=== PATIENT | female | born 1960 | race Caucasian/White ===

== ENCOUNTER → 2017-09-10 | Outpatient (CLI) | payer OTHER ==
[2017-09-10 09:24] LABS: Urine RBC None Seen /hpf (0 - 4)
[2017-09-10 09:43] LABS: Basophils # (auto) 0 uL; Basophils % (auto) 0.5 % (0.0-2.0); Eosinophils # (auto) 0.2 uL; Eosinophils % (auto) 2.7 % (0.0-7.0); Hemoglobin 14.5 g/dL (12.2-16.2); Lymphocytes # (auto) 1.7 uL; Lymphocytes % (auto) 27.6 % (10.0-50.0); Mean Corpuscular Hemoglobin 30.1 pg (28.0-32.0); Mean Corpuscular Hgb Conc. 33.7 g/dL (32.0-36.0); Mean Corpuscular Volume 89.4 fL (80.0-100.0); Mean Platelet Volume 8.6 fL (6.9-10.8); Monocytes # (auto) 0.6 uL; Monocytes % (auto) 10.2 % (0.0-12.0); Neutrophils # (auto) 3.7 uL; Nucleated Red Blood Cells % 0.1 %; Platelet Count (auto) 257 10^3/uL (140-450); Red Cell Distribution Width 13.4 % (11.8-14.3); White Blood Cell 6.3 10^3/uL (4.4-10.8)
[2017-09-10 09:47] LABS: Urine Bilirubin Negative (Negative); Urine Blood 1+ /uL (Negative); Urine Color Yellow (Yellow); Urine Glucose Normal (Normal); Urine Ketone Negative (Negative); Urine Nitrite Negative (Negative); Urine Squamous Epithelial Cell FEW /hpf (<5); Urine Urobilinogen Normal (Negative)
[2017-09-10 10:18] LABS: BUN/Creatinine Ratio 21.7; Bilirubin, Total 0.4 mg/dL (0.2-1.0); Calcium 9.2 mg/dL (8.5-10.1); Total Protein 7.9 g/dL (6.4-8.2)
[2017-09-11 08:06] LABS: Thyroid Peroxidase (TPO) Ab 9 IU/mL (0-34)
[2017-09-11 13:08] LABS: Sjogren's Anti-SS-A Antibody <0.2 AI (0.0-0.9)
[2017-09-13 15:12] LABS: t-Transglutaminase (tTG) IgG <2 U/mL (0-5)
[2017-09-14 10:09] LABS: Anti-intermyofibrillar Ab Negative (Neg:<1:20); Anti-sarcolemma Antibody Negative (Neg:<1:20)
== END | disposition home or self-care (01) ==
LOC: LAB 08:28
PROVIDERS: ATTEND Internal Medicine
DX: K52.9 Noninfective gastroenteritis and colitis, unspecified (principal); E78.00 Pure hypercholesterolemia, unspecified
CPT/HCPCS: 36415; 80053; 80061; 81001; 83615; 84439; 84443; 85025; 85652; 86225; 86235; 87045; 87177; 87493; 87899

== ENCOUNTER → 2017-09-18 | Outpatient (CLI) | payer OTHER | END | disposition home or self-care (01) | LOC: LAB 11:30 | PROVIDERS: ATTEND Internal Medicine | DX: K52.9 Noninfective gastroenteritis and colitis, unspecified (principal); E78.00 Pure hypercholesterolemia, unspecified | CPT/HCPCS: 83497 ==

== ENCOUNTER → 2017-12-22 | Outpatient (CLI) | payer OTHER | END | disposition home or self-care (01) | LOC: LAB 10:00 | PROVIDERS: ATTEND Physician Assistant | DX: L00-L99 Diseases of the skin and subcutaneous tissue (principal) ==

== ENCOUNTER → 2018-07-01 | Outpatient (CLI) | payer OTHER ==
[2018-07-01 08:58] LABS: Alanine Aminotransferase 27 U/L (13-56); Aspartate Aminotransferase 24 U/L (15-37); Cholesterol 276 mg/dL (< 200); Creatine Kinase IFCC 217 U/L (26-192); HDL Cholesterol 63 mg/dL (40-59); LDL Cholesterol 183 mg/dL (< 100); Triglycerides 131 mg/dL (< 150)
== END | disposition home or self-care (01) ==
LOC: LAB 07:31
PROVIDERS: ATTEND Internal Medicine
DX: E78.00 Pure hypercholesterolemia, unspecified (principal); M79.2 Neuralgia and neuritis, unspecified; M54.9 Dorsalgia, unspecified
CPT/HCPCS: 36415; 80061; 82550; 82607; 84450; 84460; 86812

== ENCOUNTER → 2018-08-12 | Outpatient (CLI) | payer OTHER | END | disposition home or self-care (01) | LOC: LAB 16:23 | PROVIDERS: ATTEND Internal Medicine Gastroenterology | DX: R10.9 Unspecified abdominal pain (principal) | CPT/HCPCS: 82784; 83516; 86255 ==

== ENCOUNTER → 2018-08-19 | Outpatient (CLI) | payer OTHER | END | disposition home or self-care (01) | LOC: LAB 10:43 | PROVIDERS: ATTEND Internal Medicine Gastroenterology | DX: R10.9 Unspecified abdominal pain (principal) | CPT/HCPCS: 82705; 87045; 87493; 87899 ==

== ENCOUNTER → 2018-10-04 | Day surgery (SDC) | payer OTHER ==
[2018-10-01 10:54] LABS: Basophils # (auto) 0 uL; Basophils % (auto) 0.4 % (0.0-2.0); Eosinophils # (auto) 0.1 uL; Eosinophils % (auto) 1.8 % (0.0-7.0); Hematocrit 44.6 % (36.0-46.0); Hemoglobin 14.6 g/dL (12.2-16.2); Lymphocytes # (auto) 1.7 uL; Lymphocytes % (auto) 24.6 % (10.0-50.0); Mean Corpuscular Hemoglobin 29.7 pg (28.0-32.0); Mean Corpuscular Hgb Conc. 32.8 g/dL (32.0-36.0); Mean Corpuscular Volume 90.6 fL (80.0-100.0); Monocytes # (auto) 0.6 uL; Monocytes % (auto) 8.6 % (0.0-12.0); Neutrophils # (auto) 4.4 uL; Neutrophils % (auto) 64.6 % (37.0-80.0); Nucleated Red Blood Cells % 0.1 %; Platelet Count (auto) 222 10^3/uL (140-450); Red Blood Cells 4.93 10^6/uL (4.0-5.20); Red Cell Distribution Width 13.5 % (11.8-14.3); White Blood Cell 6.9 10^3/uL (4.4-10.8)
[2018-10-01 11:00] LABS: Urine Bacteria NONE SEEN /hpf (None Seen); Urine Blood 1+ /uL (Negative); Urine Mucus FEW (None Seen); Urine Specific Gravity 1.024 (1.001-1.035); Urine WBC 1 /hpf (0 - 5)
[2018-10-01 11:06] LABS: INR 0.93 (0.9-1.15)
[~2018-10-04] VITALS: Ht 177.8 cm; Wt 77.1 kg
[~2018-10-04] MED LIST: LIDOCAINE VISCOUS 2% 15ML UD ONE; SODIUM CHLORIDE LOCK 10 ML ONE; diphenhdrAMINE 50mg/ml (500mg/10ml VIAL) ONE
[2018-10-04] MEDS: MIDAZOLAM HCL 5 MG/ML-1ML VIAL ONE ×2 (11:09→11:12)
[2018-10-04] MEDS: fentaNYL CITRATE 100 MCG/2 ML VL ONE ×2 (11:09→11:12)
[2018-10-04 11:48] VITALS: BP 136/84
== END | disposition home or self-care (01) ==
LOC: GI 08:43
PROVIDERS: ATTEND Internal Medicine Gastroenterology
DX: K21.0 Gastro-esophageal reflux disease with esophagitis (principal); K22.8 Other specified diseases of esophagus; Z90.710 Acquired absence of both cervix and uterus; Z98.890 Other specified postprocedural states
CPT/HCPCS: 36415; 43239; 81001; 85025; 85610; 85730; 99152; A6257; J2250; J3010; J7030; J1200